=== PATIENT | male | born 1985 | race American Indian/Alaskan Native ===

== ENCOUNTER 2020-04-26 10:37 | Outpatient (CLI) | payer OTHER ==
--- NOTE | 2020-04-26 12:42 | Ultrasound Report ---
ULTRASOUND ABDOMEN, COMPLETE INDICATION: R10.13 EPIGASTRIC PAIN. COMPARISON: No relevant prior imaging study available. FINDINGS: Pancreas: No significant abnormality. Abdominal Aorta: No significant abnormality. IVC: No significant abnormality. Liver: The liver measures 14.2 cm in length. No significant abnormality. Normal hepatopedal blood fl ow in the main portal vein. Gallbladder: No significant abnormality. Bile ducts: No significant abnormality. Common bile duct measures 2 mm. Kidneys: Right: 10.8 cm in length. No significant abnormality. Left: 12.3 cm in length. No signif icant abnormality. Spleen: No significant abnormality. Free fluid: None. Additional Findings: None. IMPRESSION: 1. No sonographic abnormality of the abdomen. Signer Name: Dada Beck MD Signed: 04/26/2020 12:38 PM Workstation Name: [id number]
== END 2020-04-26 10:38 | disposition home or self-care (01) ==
LOC: US 10:37
PROVIDERS: ATTEND Internal Medicine
DX: R10.13 Epigastric pain (principal)
CPT/HCPCS: 76700